=== PATIENT | female | born 1945 | race Two or more races ===

== ENCOUNTER 2016-12-08 11:43 | Emergency (ER) | payer OTHER ==
[2016-12-08 12:15] VITALS: BP 139/75; PULSE 70; RESP 16; O2SAT 96
--- NOTE | 2016-12-08 12:47 | UCPHY ---
H & P Time Seen by Provider: 12/08/16 12:24 Patient Type: New HPI/ROS: This patient presents with a chief complaint of right ear pain which began 2 days ago. Her only other associated symptom is mild nasal congestion without sinus pressure, fever, sore throat or cough. She has nose the pain is worse when she lies in the right lateral decubitus position. There is no diminishment of hearing in the right ear. The left ear is normal. Smoking Status: Former smoker Physical Exam: This is a well-developed well-nourished female who is in no acute distress. She is alert, appropriate and has normal mental status. Examination of the ears reveals normal tympanic membranes bilaterally. On the right the external auditory canal is normal in traction on the pinna does not cause pain. There is no evidence of cellulitis of the pain itself. There is minimal cerumen present in the canal. The eye exam is normal. Constitutional: Initial Vital Signs Heart Rate 70 12/08/16 12:10 Respiratory Rate 16 12/08/16 12:10 Blood Pressure 139/75 H 12/08/16 12:10 O2 Sat (%) 96 12/08/16 12:10 O2 Delivery Mode Room Air Allergies/Adverse Reactions: No Known Allergies Allergy (Unverified 12/08/16 12:15) Home Medications: Medication Instructions Recorded Aspirin EC 81 mg (*) 12/08/16 CALCIUM 12/08/16 Fish Oil 12/08/16 Medical Decision Making Differential Diagnosis: This patient has ear pain for no reason although I suspect it is secondary to eustachian tube dysfunction. There is no evidence of otitis media, occluded external auditory canal or otitis externa. Departure - Departure Disposition: Home, Routine, Self-Care Clinical Impression: Otalgia, right ear Condition: Good Instructions: Earache (ED) Additional Instructions: If the pain in your right ear is not resolved in 3 or 4 days you should be re- evaluated. Use a nasal decongestant spray such as Afrin as directed on the label. Adult Pain & Fever Control: We recommend Acetaminophen (Tylenol) and Ibuprofen (Motrin, Advil) for pain and fever control. When fever is high or pain severe, both drugs can be used at the same time, but at different intervals. Please note the time differences. Your dose is: Acetaminophen [650]mg every 4 to 6 hours ibuprofen [600]mg every [6] hours with food OR naproxen Sodium (Aleve) [440]mg every 12 hours. Note: do not take Acetaminophen with Hydrocodone (Vicodin, Lortab) or Oxycodone (Percocet). These medications also contain Acetaminophen. No more than 3000 mg of Acetaminophen should be taken in 24 hours (for an adult) . The maximal dose of ibuprofen that it is safe in a 24-hour period is 2400 mg. You may take 400 mg every 4 hours, 600 mg every 6 hours or 800 mg every 8 hours safely. Referrals: Mandeep Vargas DO [Primary Care Provider] - As per Instructions - PQRS PQRS Measurement: Not applicable
== END 2016-12-08 12:51 | disposition home or self-care (01) ==
LOC: CED 11:43
DX: H92.01 Otalgia, right ear (principal)
CPT/HCPCS: 99203-PO; G0463-PO